=== PATIENT | male | born 1995 | race African-American/Black ===

== ENCOUNTER 2020-10-28 15:27 | Emergency (ER) | payer OTHER ==
[~2020-10-28] VITALS: Ht 185.4 cm; Wt 68.9 kg
--- NOTE | 2020-10-28 17:23 | NUR ---
Patient discharged to home in stable condition. Written and verbal after care instructions given. Patient verbalizes understanding of instructions. Stressed follow up or return to ER for worsening s/s.
== END 2020-10-28 18:00 | disposition home or self-care (01) ==
LOC: ER 15:27
DX: K64.4 Residual hemorrhoidal skin tags (principal); Z87.09 Personal history of other diseases of the respiratory system
CPT/HCPCS: A4663